=== PATIENT | female | born 1985 | race Caucasian/White ===

== ENCOUNTER 2018-06-02 17:11 | Emergency (ER) | payer BC, SELFPAY ==
[2018-06-02 17:13] VITALS: BP 162/100; PULSE 96; RESP 16; TEMP 36.4; O2SAT 97; BMI 38.9
--- NOTE | 2018-06-02 17:32 | CT_ITS ---
STUDY: CTA NECK WITH CONTRAST REASON FOR EXAM: Female, 33 years old. Right eye and neck pain RADIATION DOSAGE (If Supplied By Facility): CTDIvol = ( 30.16 ) mGy, DLP = ( 1618.95 ) mGycm TECHNIQUE: CT angiography with multi-detector data acquisition was performed from the aortic arch to the skull base following intravenous administration of 100ml ml of Isovue 370 contrast. MIP images were reconstructed from the axial data set. Post-processing of the angiographic images was performed, with multiplanar reformation and 3D reconstruction. Individualized dose optimization techniques were used for this CT. COMPARISON: None. FINDINGS: AORTIC ARCH: Normal visualized aortic arch. Normal origins of the brachiocephalic, left common carotid, and left subclavian arteries. RIGHT CAROTID ARTERIES: Normal right common carotid artery (CCA). Normal right common carotid bulb. Normal origin of the right internal carotid (ICA) artery without a hemodynamically significant stenosis. Normal visualized cervical portion of the right internal carotid artery. Normal origin of the right external carotid artery (ECA). LEFT CAROTID ARTERIES: Normal left common carotid artery (CCA). Normal left common carotid bulb. Normal origin of the left internal carotid (ICA) artery without a hemodynamically significant stenosis. Normal visualized cervical portion of the left internal carotid artery. Normal origin of the left external carotid artery (ECA). VERTEBRAL ARTERIES: Normal bilateral vertebral arteries. CT/CTA Neck W/WO Contrast IMPRESSION: Normal bilateral cervical carotid and vertebral arteries. Electronically Signed: Jemal Sullivan MD at 20:08 EDT , Service support ,
--- NOTE | 2018-06-02 17:32 | CT_ITS ---
STUDY: CTA OF THE BRAIN REASON FOR EXAM: Female, 33 years old. Right side eye/neck pain x5 days RADIATION DOSAGE (If Supplied By Facility): CTDIvol = ( 30.16 ) mGy, DLP = ( 1618.95 ) mGycm TECHNIQUE: CT angiography was performed with a multi-detector CT scanner. Data acquisition was obtained from the skull base through the vertex following intravenous administration of ml of . MIP images were reconstructed from the axial data set. Post-processing of the angiographic images was performed, with multiplanar reformation and 3D reconstruction. Individualized dose optimization techniques were used for this CT. COMPARISON: None. FINDINGS: Normal bilateral petrous carotid arteries. Normal right cavernous carotid artery with a normal supraclinoid bifurcation. Normal left cavernous carotid artery with a normal supraclinoid bifurcation. Normal right A1 segments of the anterior cerebral artery. Normal left A1 segments of the anterior cerebral artery. Normal intact anterior communicating artery (ACOM). Normal bilateral A2 segments of the anterior cerebral arteries. Normal right M1 and M2 segments of the middle cerebral arteries, with a normal M1 bifurcation. Normal left M1 and M2 segments of the middle cerebral arteries, with a normal M1 bifurcation. There is non-visualization of the right posterior communicating artery (PCOM). Normal left posterior communicating artery (PCOM). Normal bilateral vertebral arteries. Normal basilar artery with a normal basilar bifurcation. The visualized bilateral superior cerebellar (SCA) arteries are normal. Normal bilateral P1, P2 and visualized P3 segments of the posterior cerebral arteries. There is no demonstrated aneurysm of the [place]. There is no demonstrated abnormality of the visualized brain. CT/CTA Head W/WO Contrast IMPRESSION: Normal variant anatomy [place] without a demonstrated aneurysm or hemodynamically significant stenosis. Electronically Signed: Jemal Sullivan MD at 22:31 EDT , Service support ,
--- NOTE | 2018-06-02 17:36 | ED.DCSUM_ITS ---
- ER Visit Summary Date of Service: 06/02/18 Chief Complaint: Headache History of Present Illness: The patient is a 33 F presenting with headache. She states this started on Sunday. Pain started on the right side of her neck. It radiates to the right side of her head. It has gradually worsened since it started. She has been taking ibuprofen [id number]. Today she went to urgent care and they sent her to the ED for further evaluation. She did not does not typically get headaches. She has intermittent blurry vision bilaterally. She denies fever or other complaints. Physical Examination: Vitals are stable. Patient is afebrile. Alert no acute distress. Nontoxic appearing HEENT exam is unremarkable. PERRL, EOMI Neck is supple. No meningismus Lungs are clear and equal bilaterally. Heart is regular rate and rhythm. Abdomen is soft nontender nondistended. Extremities are unremarkable. Skin is warm and dry. No focal neurologic deficit. Normal strength and sensation Remainder of exam is unremarkable. Emergency Department Course and Treatment: She declined medications. CTA head and neck was obtained and was read by radiology as normal. Patient is resting comfortably on reevaluation. She is given ibuprofen. She is given a prescription for Flexeril. She is advised to follow-up with her primary care physician. Advised return to ED if worsening complaints. Disposition: Discharge home Impression: Headache This note was generated with [employer] dictation software. It may contain incorrect words, spelling, and punctuation that were not noted in review of the chart prior to signing ED Disposition - Plan for ED Patient: Chief Complaint: Headache Instructions: ED Cephalgia Unspecified Prescriptions: Cyclobenzaprine [Flexeril] 10 mg PO TID PRN #20 tablet PRN Reason: Muscle Spasm Referrals: Dougie Rivera DO [NON CLINICAL AFFILIATE] -
--- NOTE | 2018-06-02 19:12 | ED.DEP ---
ED Disposition - Plan for ED Patient: Chief Complaint: Headache Instructions: ED Cephalgia Unspecified Prescriptions: Cyclobenzaprine [Flexeril] 10 mg PO TID PRN #20 tablet PRN Reason: Muscle Spasm Referrals: Dougie Rivera DO [NON CLINICAL AFFILIATE] -
[2018-06-02 19:13] VITALS: RESP 16; O2SAT 98
[2018-06-02 20:25] VITALS: RESP 16
== END 2018-06-02 20:25 | disposition home or self-care (01) ==
PROVIDERS: Emergency Provider Emergency Medicine; Family Provider Student in an Organized Health Care Education/Training Program
DX: R51 Headache (principal)
CPT/HCPCS: 70496; 70498; 99283; Q9967; A4216